=== PATIENT | female | born 1960 | race Caucasian/White ===

== ENCOUNTER → 2024-11-24 11:18 | Outpatient (REF) | payer OTHER, SELFPAY | LOC: WDC 11:18 | PROVIDERS: ATTENDING PHYSICIAN Obstetrics & Gynecology Gynecology; FAMILY PHYSICIAN Family Medicine | DX: Z12.31 Encounter for screening mammogram for malignant neoplasm of breast (principal); M81.0 Age-related osteoporosis without current pathological fracture | CPT/HCPCS: 77063; 77067 ==

== ENCOUNTER → 2024-12-29 08:19 | Outpatient (REF) | payer OTHER, SELFPAY | LOC: RAD 08:19 | PROVIDERS: ATTENDING PHYSICIAN Internal Medicine Rheumatology; FAMILY PHYSICIAN Family Medicine | DX: M81.0 Age-related osteoporosis without current pathological fracture (principal) | CPT/HCPCS: 77080; 77081 ==